=== PATIENT | female | born 1995 | race Caucasian/White ===

== ENCOUNTER 2018-12-13 13:23 | Emergency (ER) | payer BC, OTHER ==
[2018-12-13 13:34] VITALS: BP 113/68; PULSE 109; TEMP 98.7; BMI 20.8
[2018-12-13] MEDS ORDERED: LIDOCAINE VISCOUS 2% ORAL/TOP 20 ML UNIT-DOSE CUP MM ONE (13:42)
--- NOTE | 2018-12-13 13:57 | PDOC ---
History of Present Illness - General Chief Complaint: Oral Ulcers Stated Complaint: COLD SORE Time Seen by Provider: 12/13/18 13:36 History Source: Patient - History of Present Illness Associated Symptoms: reports: rash (blisters to upper lip and roof of month). denies: fever/chills Past History - Travel Traveled outside of the country in the last 30 days: No Close contact w/someone who was outside of country & ill: No - Past Medical History Allergies/Adverse Reactions: Allergies Allergy/AdvReac Type Severity Reaction Status Date / Time No Known Allergies Allergy Verified 12/13/18 13:27 Home Medications: Ambulatory Orders Lidocaine 2% Viscous Oral [Xylocaine 2% Viscous Oral -] 20 ml PO Q6H 3 Days #90 ml 12/13/18 COPD: No - Immunization History Immunization Up to Date: No - Suicide/Smoking/Psychosocial Hx Smoking History: Former smoker Have you smoked in the past 12 months: No Number of Cigarettes Smoked Daily: 2,015 Information on smoking cessation initiated: No Hx Alcohol Use: No Drug/Substance Use Hx: No Review of Systems - Review of Systems Constitutional: No: Chills, Fever HEENTM: No: Throat Pain Respiratory: No: Cough Integumentary: Yes: Rash. No: Erythema, Flushing, Pruritus Neurological: No: Headache *Physical Exam - Vital Signs Last Vital Signs Temp Pulse Resp BP Pulse Ox 98.7 F 109 H 16 113/68 100 12/13/18 13:28 12/13/18 13:28 12/13/18 13:28 12/13/18 13:28 12/13/18 13:28 - Physical Exam General Appearance: Yes: Nourished HEENT: positive: Other (blister noted in mid aspect of upper lip, one ulcerated lesion noted in roof of month, ) Respiratory/Chest: positive: Lungs Clear, Normal Breath Sounds Cardiovascular: positive: Regular Rhythm, Regular Rate, S1, S2 Neurologic: positive: bus monitor II-XII NML intact, Fully Oriented, Alert, Normal Mood/ Affect, Normal Response, Motor Strength 5/5 Medical Decision Making - Medical Decision Making 23y/o F with oral sore since yesterday denies fever, chill, sick contact or recent URI sx she denies h/o HSV or any STI concerns HSV 1 and 2 sent viscous lidocaine topical cream *DC/Admit/Observation/Transfer Diagnosis at time of Disposition: Blister (nonthermal) of oral cavity, initial encounter - Discharge Dispostion Disposition: HOME Condition at time of disposition: Stable Decision to Admit order: No - Prescriptions Prescriptions: Lidocaine 2% Viscous Oral [Xylocaine 2% Viscous Oral -] 20 ml PO Q6H 3 Days #90 ml - Referrals Referrals: Rudi Campa MD [Primary Care Provider] - - Patient Instructions Printed Discharge Instructions: Blisters Additional Instructions: Please apply lidocaine as directed take Motrin for pain you will be contacted if your lab is abnormal follow up with your PCP Return to the ER if worsening symptoms occurs - Post Discharge Activity
[2018-12-13] MEDS ORDERED: LIDOCAINE VISCOUS 2% ORAL/TOP 20 ML UNIT-DOSE CUP ONE (14:04)
== END 2018-12-13 14:12 | disposition home or self-care (01) ==
LOC: JER 13:23 → JERFT 13:23
DX: S00.522A Blister (nonthermal) of oral cavity, initial encounter (principal); Z87.891 Personal history of nicotine dependence
CPT/HCPCS: 36415; 86695; 86696; 99281-25